=== PATIENT | female | born 1935 | race Caucasian/White ===

== ENCOUNTER → 2017-02-17 | Outpatient (CLI) | payer MEDICARE, BC ==
[~2017-02-17] MED LIST: ADALATCC PO; ASPIRIN EC81 M1 PO; ASPIRIN81 M1 PO; COLACE PO; EVISTA60 M1 PO; EVISTA60 MG PO; IRON325 ( 652 PO; LASIX PO; LASIX20 MG PO; LIPITOR40 MG PO; LISINOPRIL PO; LOTREL 5/10 MG1 CAP PO; MIRALAX17 GM DOB; OMEPRAZOLE20 M2 PO; ONDANSETRON HCL4 M1 PO; PERCOCET5/325 PO; PRILOSEC PO; PRINIVIL20 M1 PO; SODIUM BICARBO650 MG PO; SYNTHROID PO; SYNTHROID0.15 MG PO; VICODIN 5/1 TAB 5/50 PO; VITAL-D RX TABL1 TAB PO; VYTORIN 10/40 T1 TAB PO; [UNRECOGNIZED DRUG - REMARK]
--- NOTE | ~2017-02-17 | MY29 ---
[facility] A Service of [facility] / [facility] RADIOLOGY TEXT RESULTS PATIENT: GELY BARROW LOCATION: [facility] : 39 UNIT #: [id number] AGE: [address]: Francisco Garcia MD SEX: F ORDER DR: [id number] [facility] [address] [place], [place] [address] [id number] O MR#: [id number] Acc #: [id number] NAME: GELY BARROW : 1935 SEX: F STUDY DATE/TIME: 02/17/2017 7:57 UNIT: [facility] ROOM: STUDY DESCRIPTION: MY NESTOR SCREENING W/ CAD BILAT Attending Physician: Francisco Garcia M.D. Referring Physician: Francisco Garcia M.D. Ordering Physician: Francisco Garcia M.D. Primary Care Physician: Francisco Garcia M.D. MEDICAL IMAGING REPORT This report is preliminary unless electronic signature is present EXAM Digital screening mammogram 02/17/2017 HISTORY 81-year-old woman currently on hormone replacement, 20 years. Annual screen. COMPARISON Mammograms date to 09/05/2006 with most recent 02/15/2016. FINDINGS Digital imaging of each breast was completed utilizing a two-view examination of each breast in craniocaudal and mediolateral-oblique projections. Review and interpretation of digital mammograms include a second review in conjunction with FDA-approved CAD device. There is a normal parenchymal presentation bilaterally consistent with the patient's age. There are no breast masses imaged and no parenchymal asymmetry is visualized. There are no suspicious microcalcifications and I see no focal architectural disturbance. IMPRESSION Negative screening digital mammogram. One-year followup recommended. ADDENDUM Breast parenchyma is fatty replaced. Patients over the age of 40 are entered into a reminder system with target due date for the next mammogram. A result letter will also be sent to the patient. BIRADS: 1 Negative [facility] A Service of [facility] RADIOLOGY TEXT RESULTS PATIENT: GELY BARROW LOCATION: [facility] : 39 UNIT #: [id number] AGE: [address]: Francisco Garcia MD SEX: F ORDER DR: Dictated by... Chad Alves M.D. THIS IS AN ELECTRONICALLY VERIFIED REPORT Chad Alves M.D. at 02/17/2017 2:19 PM DONNA/lázaro TD: 02/17/2017 09:10 JOB #: [id number] MEDICAL IMAGING REPORT Page 1 of 1 COPY
== END | disposition home or self-care (01) ==
LOC: CWCC 07:30
DX: Z12.31 Encounter for screening mammogram for malignant neoplasm of breast (principal); R92.8 Other abnormal and inconclusive findings on diagnostic imaging of breast
CPT/HCPCS: G0202